=== PATIENT | male | born 1955 | race Caucasian/White ===

== ENCOUNTER 2020-01-26 12:12 | Emergency (ER) | payer MEDICARE, MEDICAID ==
[~2020-01-26] VITALS: Ht 175.2 cm; Wt 72.6 kg
[~2020-01-26 12:12] MED LIST: CYCL10TA9; CYCL10TA9 PO; GBPN300C; NAPR-243 PO; OXC5T; PRD20T PO; SULF1TAB35 PO; TRM50T PO
[2020-01-26 12:13] VITALS: BP 110/47
--- NOTE | 2020-01-26 12:13 | NUR ---
1213 TOA TO ROOM, CPR IN PROGRESS, FSBS 330, EMS REPORTS NO PMH. 1214 PULSE CHECK, ASYSTOLE, CONT CPR 1215 1MG EPI IV 1216 300 MG AMIODORONE 1217 NO PULSE 1218 1 MG EPI IV 1219 INTUBATION WITH COLOR CHANGE PER DR GARDNER 29 @ THE TEETH 1221 1 MG EPI IV AND 16 FR OGT 1223 50 MEQ BICARG IV, PULSE CHECK REMAINS ASYSTOLE, CPR CONT. 1225 1 MG EPI IV, ETCO2 28, 76%, 94/31 BP WITH CPR. 1226 ETCO2 18, PULSE CHECK, REMAINS IN ASYSTOLE, DOCTOR CALLED TOD @1226. 1241 COVID TEST COLLECTED AND SENT TO LAB. 1253 PASTORAL CARE ARRIVED TO SPEAK WITH FAMILY.
[2020-01-26] MEDS ORDERED: EPINEPHrine 0.1 MG/ML 10 ML (HOSPIRA) SYR IJ ONE (12:14)
[2020-01-26] MEDS ORDERED: CATHETER FLUSH 10 ML SYR IV ONE (12:14)
[2020-01-26] MEDS ORDERED: AMIODARONE (OMNICELL DRIP KIT) 150 MG/3 ML IV ONE (12:14)
[2020-01-26] MEDS ORDERED: SODIUM BICARB 8.4% 50 MEQ/50 ML (ABBOTT) SYR INJ ONE (12:14)
--- NOTE | 2020-01-26 12:20 | NUR ---
PT REPORTS PT DID NOT GO TO DOCTOR, PT C/O RACING HEART TODAY. FAMILY REPORTS HEAVY DRINKER AND HEAVY SMOKER.
--- NOTE | 2020-01-26 12:48 | ED CPR ---
HPI-CPR General Chief Complaint: Code Blue Stated Complaint: CODE Source of Information: EMS, Family Exam Limitations: Physical Impairments (LMA in the airway) History of Present Illness Date Seen by Provider: Jan 26, 2020 Time Seen by Provider: 12:13 Initial Comments Patient presents to ER by EMS from home with chief complaint cardiac arrest. CPR were started by fire and rescue 10 minutes prior to EMS arrival. EMS gave 5 electrical shocks for V. fib and 4 rounds of epinephrine. EMS also gave around bicarbonate. Patient's been having racing heart rate this morning and says he refused to go to the ER that she made him at the doctor's appointment. He does not follow routinely with a doctor. He is a chronic alcoholic and uses tobacco routinely. No other known medical history. Allergies and Home Medications Allergies Coded Allergies: Penicillins (Unverified Allergy, Mild, 09/03/09) Tetanus Vaccines and Toxoid (Unverified Allergy, Mild, 09/03/09) Home Medications Cyclobenzaprine HCl 10 Mg Tablet, 10 MG PO Q8H PRN for SPASMS Prescribed by: LANEY ARMSTRONG on 03/24/15 173 Naproxen 500 Mg Tablet, 1 EACH PO TID PRN FOR PAIN AND SWELLING Prescribed by: DONNA STEARNS on 09/03/09 1315 Prednisone 20 Mg Tab, 40 MG PO DAILY Prescribed by: LANEY ARMSTRONG on 03/24/151732 Sulfamethoxazole/Trimethoprim 1 Each Tablet, 1 EACH PO BID FOR INFECTION Prescribed by: DONNA STEARNS on 09/03/09 1315 Tramadol HCl 50 Mg Tablet, 50 MG PO Q4H PRN for PAIN Prescribed by: LANEY ARMSTRONG on 03/24/15 1733 Patient Home Medication List Home Medication List Reviewed: Yes Review of Systems Review of Systems Constitutional: see HPI (review of systems unavailable per patient because he is intubated however gives following review of systems); No chills, No diaphoresis EENTM: No Blurred Vision, No Double Vision Respiratory: Denies Cough, Denies Shortness of Air Cardiovascular: Denies Chest Pain, Denies Edema; Palpitations (rapid heart rate) Gastrointestinal: Denies See HPI, Denies Abdomen Distended, Denies Abdominal Pain, Denies Nausea, Denies Poor Fluid Intake, Denies Vomiting Genitourinary: Denies Burning, Denies Discharge Musculoskeletal: No back pain, No joint pain Skin: No pruritus, No rash Psychiatric/Neurological: See HPI; Denies Anxiety, Denies Depressed All Other Systems Reviewed Negative Unless Noted: Yes Past Gjlvsfc-Rmiuqv-Punzix Hx Patient Social History Alcohol Use: Regular Use Recreational Drug Use: No Smoking Status: Current Everyday Smoker Physical Exam Vital Signs Capillary Refill : Height, Weight, BMI Height: 6'3" Weight: 175lbs. oz. 79.005797pk; BMI Method:Stated General Appearance: Severe Distress, Thin HEENT: No PERRL/EOMI, No Moist Mucous Membranes Neck: Full Range of Motion, Normal Inspection Respiratory: Respiratory Distress (severe with LMA in place) Cardiovascular: Other (CPR in progress) Gastrointestinal: No Pulsatile Mass, Soft; No Distended Extremity: Other (warm to touch decent color pink) Neurologic/Psychiatric: Other (GCS 3T) Skin: Normal Color, Warm/Dry Procedures/Interventions Reason for Intubation: CPR Date of ETT Placement: Jan 26, 2020 Time of ETT Placement: 12:19 Intubation Method: orotracheal Tube Size: 8.00 Positive End Tide CO2: Yes Breath Sounds after Intubation: bilateral-equal Intubation Complications: no complications Post Intubation Xray: No () Herson vision an 8.0 tube placed 26 at the teeth. Colorimetric capnography paper changed color and have good bilateral symmetric breath sounds with no air sounds heard over the epigastric region. Progress/Results/Core Measures Results/Orders Lab Results Laboratory Tests Test 01/26/20 12:45 01/26/20 13:50 Range/Units My Orders Orders - GOPAL GARDNER Coronavirus Sars-Cov-2 So 2019 (01/26/20 12:32) Drug Screen Blood Comprehensiv (01/26/20 13:36) Critical Care Note Critical Care Start Time: 12:13 Stop Time: 12:26 Total Time (minutes) 13 mins Date of : Jan 26, 2020 Time of : 12:26 Progress The patient presents in extremis receiving CPR. We took over CPR and gave high quality CPR with replacement of his LMA by a ET tube. We can get oxygen sats in the mid 70s. He had good bilateral even breath sounds. No secretions to be suctioned. End-tidal CO2(1) started about 28 and continued to go down. During the course of his stay he had a blood glucose of 3:30 and no known medical history. Just that he drinks alcohol smoke cigarettes. Epinephrine was given per nursing notes. His first pulse check demonstrated asystole. 300 mg of amiodarone were given because of the history of multiple shocks for ventricular fibrillation. OG tube was placed by nursing. 50 mEq of bicarbonate was given. Calcium carbonate was called for and was unavailable. His end-tidal CO2 continued to dwindle down to 18 and every pulse check thereafter was still asystole. Oxygen saturation was doing willing to the 50% range. He had been receiving CPR now for over 45 minutes and it was decided by this provider and the team to discontinue our resuscitative efforts. Time of declared 1226. The patient had no meaningful spontaneous respiratory movement, heart rhythm, heart tones, pulse or electrical activity on the monitor. Departure Impression Primary Impression: Cardiac arrest Additional Impressions: Ventricular fibrillation by electrocardiogram determined by examination Disposition: 20 Condition: Departure-Patient Inst. Decision time for Depature: 12:26 Patient Instructions: Ventricular Fibrillation GOPAL GARDNER Jan 26, 2020 12:48
--- NOTE | 2020-01-26 13:33 | NUR ---
MANUEL-Junior Arguello requested tox screen qualitative.
--- NOTE | 2020-01-26 13:56 | NUR ---
Contacted Jaycee-, states she is waiting for daughters to arrive and they are 2-3 hrs away.
--- NOTE | 2020-01-26 14:39 | NUR ---
Pt extubated and ice packs placed at 1425
--- NOTE | 2020-01-26 15:46 | NUR ---
reported to production supervisor @ [id number] patient body transferred to room #507. Ice packs in place.
--- NOTE | 2020-01-26 17:24 | NUR ---
Received phone call from maria g BYRNE to release body to home. Window Maker Jill notified of release of body. She will call family and discuss further plans.
--- NOTE | 2020-01-26 18:53 | NUR ---
[facility] here to get body. Release of body paperwork signed and sent to medical records.
== END 2020-01-26 18:53 | disposition expired ==
LOC: EDUNIT# 12:12 → ER 12:13
DX: I46.9 Cardiac arrest, cause unspecified (principal); I49.01 Ventricular fibrillation; F17.200 Nicotine dependence, unspecified, uncomplicated; Z20.828 Contact with and (suspected) exposure to other viral communicable diseases; Z88.0 Allergy status to penicillin; Z88.7 Allergy status to serum and vaccine; Z79.52 Long term (current) use of systemic steroids
CPT/HCPCS: 31500; 99283; G0479; U0002; 36415; 80307; 87635